=== PATIENT | female | born 1975 | race African-American/Black ===

== ENCOUNTER 2021-07-17 09:01 | Emergency (ER) | payer OTHER ==
[~2021-07-17] VITALS: Ht 157.5 cm; Wt 72.6 kg
[2021-07-17 09:02] VITALS: BP 131/92
[2021-07-17 09:57] LABS: AMP/METHAMP POSITIVE (Negative); BARBITURATES Negative (Negative); BENZODIAZEPINES Negative (Negative); COCAINE Negative (Negative); METHADONE Negative (Negative); OPIATES Negative (Negative); PCP POSITIVE (Negative)
== END 2021-07-17 13:30 | disposition home or self-care (01) ==
LOC: ER 09:01
PROVIDERS: Emergency Medicine
DX: F19.10 Other psychoactive substance abuse, uncomplicated (principal); F17.210 Nicotine dependence, cigarettes, uncomplicated